=== PATIENT | male | born 1950 | race Caucasian/White ===

== ENCOUNTER 2018-05-03 06:37 | Observation (INO) | payer BC ==
[~2018-05-03] VITALS: Ht 182.9 cm; Wt 120.6 kg
--- NOTE | ~2018-05-03 | D ---
[facility] [place] [address] DISCHARGE SUMMARY Name: ARY LOPEZ Room #: REG [facility] [id number] Admission: 05/03/18 ������������������ Attend Phys: Chad Perales MD, Discharge: ������������������ Date of : 50 Report #: [id number] THIS REPORT FOR: //name// CC: Chad Scruggs [facility] [place] DISCHARGE DIAGNOSES: 1. Progressive, unstable angina. 2. Severe coronary artery disease with stenting of the proximal right coronary (4.0 x 15 mm Tabatha medicated stent). 3. Hypertension. 4. Diabetes. 5. Dyslipidemia. 6. Carotid stenosis. 7. Left bundle branch block. HISTORY OF PRESENT ILLNESS: For the complete details of the history of present illness, see dictated history and physical. Briefly, the patient is a 67-year-old gentleman with longstanding diabetes, hypertension and recent progressive chest discomfort. He is admitted for coronary angiography. HOSPITAL COURSE: The patient was admitted and underwent coronary angiography. The details of this can be found under separate heading and dictation. In summary, a very high-grade proximal LAD disease was identified, which was treated with a 4.0 x 15 mm Tabatha medicated stent postdilated to 4.4 mm with a noncompliant balloon. His post-procedural course was uneventful. He was treated with heparin, Integrilin, aspirin and prasugrel in the periprocedural setting. He was ambulating with excellent groin hemostasis at the time of discharge. DISCHARGE DIET: Low-fat, low-cholesterol, prudent diabetic type, carb-controlled. DISCHARGE MEDICATIONS: Aspirin 81 mg daily, Invokana 300 mg daily, Levemir 20 units at night, irbesartan 300 mg daily, metformin 1000 mg twice daily, Singulair 10 mg daily, pravastatin 80 mg daily, Zantac 300 mg daily, thiamine and multivitamin. Medicines were reconciled. DISCHARGE ACTIVITY: As instructed post catheterization. DISCHARGE FOLLOWUP: With Dr. Manrique as previously arranged. Follow up with myself in 1 month. Arrangements were made for outpatient cardiac rehabilitation. [address] [address] DISCHARGE SUMMARY Name: TAYLER LOPEZDERICK STEPHEN Room #: REG [facility].#: [id number] Admission: 05/03/18 ������������������ Attend Phys: Chad Perales MD, Discharge: ������������������ Date of : 50 Report #: [id number] DISCHARGE CONDITION: Stable and improved. ��������������������������������������������� ���������������������������������������� By: ��������������������������������������������� 0929 1333 Chad Perales MD, FACC /nt
[~2018-05-03 06:37] MED LIST: ALLEGRA180 MG PO; AVAPRO75 MG PO; DOXYCYCLINE 10100 MG PO; DYRENIUM100 MG PO; FISH OIL 1,0001 EAC5 PO; GLUCOPHAGE; NATURAL VITA100 UNIT PO; PLAVIX 75 MG TA75 MG PO; SIMVASTATIN20 MG PO; VITAMIN C W/R1000 MG PO
[2018-05-03] MEDS ORDERED: ZANTAC 150MG T150 MG PO (06:54)
[2018-05-03] MEDS ORDERED: INVOKANA300 MG PO (06:54)
[2018-05-03] MEDS ORDERED: ZYRTEC10 M5 PO (06:54)
[2018-05-03] MEDS ORDERED: VITAMIN B-1100 M1 PO (06:55)
[2018-05-03] MEDS ORDERED: VITAMIN B-12500 MCG PO (06:55)
[2018-05-03] MEDS ORDERED: FISH OIL 1,001000 M2 PO (06:56)
[2018-05-03] MEDS ORDERED: VITAMIN D3400 UNIT PO (06:57)
[2018-05-03] MEDS ORDERED: METFORMIN HCL500 MG PO (06:58)
[2018-05-03] MEDS ORDERED: ASPIR 8181 MG PO (07:00)
[2018-05-03] MEDS ORDERED: AVAPRO300 MG PO (07:00)
[2018-05-03] MEDS ORDERED: FLONASE 0.05%50 MCG INH (07:00)
[2018-05-03] MEDS ORDERED: PRAVACHOL40 MG PO (07:01)
[2018-05-03] MEDS ORDERED: SINGULAIR 10 MG10 M1 PO (07:02)
[2018-05-03 07:10] VITALS: BP 145/61
[2018-05-03] MEDS ORDERED: EFFIENT10 MG PO (09:21)
[2018-05-03] MEDS ORDERED: LEVEMIR SUBQ (09:22)
--- NOTE | 2018-05-03 09:47 | CATHLAB ---
[facility] [place] [address] INVASIVE PROCEDURE REPORT Name: JESSICAARYTERESA MITCHELL Room #: REG CL [facility] [id number] ������������� Admission: 05/03/18 ������������� Attend Phys: Chad Perales, Discharge: ��� ������������� ��� Date of : 50 Date of Service: 05/03/18 0947 �� Report #: [id number] �������� ��������������������������������������������[id number] THIS REPORT FOR: //name// APPROVED REPORT Study performed: 05/03/2018 07:18:47 Patient Details Patient Status: Out-Patient Room #: The patient is a 67 year-old male Event Personnel Chad Perales Knife Changer, Yordan Murillo RN, Elizabet Parada Sandifer, David Monitor Procedures Performed Left Heart Cath w/or w/o Coronaries [id number] [facility] Place w/wo Plasty Single RCA [id number] Indication Chest pain Procedure Narrative The Right Groin^ was infiltrated with 1% Lidocaine subcutaneous anesthesia. A PINNACLE 6FR Sheath #[id number] sheath was inserted into the RFA^. Coronary angiography was performed using coronary diagnostic catheters. The right coronary system was accessed and visualized with a JR4 catheter. The left coronary system was accessed and visualized with a JL4 catheter. The left ventricle was accessed and visualized with a PIGTAIL catheter. Left ventricular/Aortic Valve gradient assessed via catheter pullback. Left ventriculogram was performed in 30 degree projection. Closure device was deployed with a 6 Fr MYNXGRIP 6/7F #[id number]. There was no hematoma. Intraoperative Conscious Sedation Sedation start time: 8.12 Case end Time: 9.06 Fentanyl 75 mcg Versed 2 mg Fluoro Time: 8.38 minutes Dose: DAP 27283 cGycm2 1539 mGy Contrast Type and Amount: Omnipaque 240 ml Coronary Angiography The patient's coronary anatomy is right dominant. [facility] [place] [address] INVASIVE PROCEDURE REPORT Name: ARY LOPEZ [place] Room #: REG [facility] [id number] ������������� Admission: 05/03/18 ������������� Attend Phys: Chad Perales, Discharge: ��� ������������� ��� Date of : 50 Date of Service: 05/03/18 0947 �� Report #: [id number] �������� ��������������������������������������������[id number] Diagnostic Cath Left Main Normal left main LAD 30% proximal LAD stenosis 30-40% mid LAD stenosis Diagonal 1 40-50% proximal diagonal branch stenosis Diagonal 2 Moderate in size, angiographically normal Circumflex The circumflex was moderate in size and angiographically nondominant. Comprised of a single bifurcating marginal branch Proximal circumflex exhibited a 30-40% stenosis OM1 Moderate size, single marginal branch, angiographically normal Right Coronary Dominant right coronary with a 95-99% proximal right coronary stenosis R PDA Large, angiographically normal posterior descending RPLV Large, angiographically normal posterolateral branch Left Ventriculography The left ventricle is normal in size with normal contractility. The left ventricular ejection fraction is estimated to be 50%. Left ventricular wall motion abnormalities are not present. There is no mitral insufficiency. Discordant anterior wall motion consistent with an intraventricular conduction delay Hemodynamics The aortic pressure is 148/72 mmHg with a mean of 97 mmHg. The left ventricular pressure is 171/14 mmHg with a mean of mmHg. The left ventricular end diastolic pressure is 28 mmHg. There was no gradient across the aortic valve upon pullback. Pullback from the left ventricle to the aorta revealed no gradient across the aortic valve. PCI Technique Lesion Anticoagulation was achieved with Heparin, Integrilin. Patient was preloaded with Effient. Percutaneous coronary intervention was performed on the proximal right coronary artery. The lesion stenosis prior to intervention was 99% with DERRICK 3 flow. A LAUNCHER 6FR 3DRC #[id number] Guide Catheter was used to engage the ostium. A Luge Wire .014 x 182CM #[id number] Interventional Guidewire was used to cross the lesion. BALLOON DILATION A Balloon catheter Euphora RX 3.5 x 15 #[id number] was inserted and inflated up to 8.00atm for 26seconds. Repeat angiography revealed the [facility] [address] [place] [address] INVASIVE PROCEDURE REPORT Name: ARY LOPEZ STEPH[place] Room #: REG CL [facility]#: [id number] ������������� Admission: 05/03/18 ������������� Attend Phys: Chad Perales, Discharge: ��� ������������� ��� Date of : 50 Date of Service: 05/03/18 0947 �� Report #: [id number] �������� ��������������������������������������������[id number] following post-dilatation results: severe residual stenosis. STENT DEPLOYMENT A drug-eluting stent XIENCE ANABEL RX 4.0 X 15 #[id number] was inserted and inflated up to 20.00atm for 27seconds. Repeat angiography revealed the following post-stent deployment results: 0% residual stenosis. POST STENT DEPLOYMENT BALLOON DILATION A Balloon catheter TREK NC RX 4.5 X 12 #[id number] was inserted and inflated up to 16.00atm for 30seconds. Repeat angiography revealed the following post-dilatation results: 0% residual stenosis. Final angiography reveals 0 % stenosis with DERRICK 3 flow. COMMENTS 4.0 mm stent dilated to 4.45 mm with a noncompliant balloon Conclusion 1. Normal left ventricular systolic function with discordant septal motion 2. Normal left main 3. Moderate proximal and mid LAD disease 4. Mild to moderate plaquing in a nondominant circumflex 5. Critical proximal right coronary stenosis successfully ballooned and stented with a 4.0 x 15 mm Anabel medicated stent, post-dilated to 4.45mm Recommendations Cardiac Rehabilitation Referral Aggressive Medical Therapy Medications Administered ALLEY Inhibitor (any) Aspirin (any) Statin (any) Prasugrel Cardiac Rehabilitation Referral ��������������������������������������������� <ELECTRONICALLY SIGNED> ���������������������������������������� By: Chad Perales MD, FACC ��������������������������������������������� 05/03/18946 6 6 Chad Perales MD, FACC /INF
--- NOTE | 2018-05-03 12:18 | EKG ---
[address] [place] [address] ELECTROCARDIOGRAM REPORT Name: LOPEZARY JOSEPH Room #: REG CLI [facility]#: [id number] ������������������ Admission: 05/03/18 ������������������ Attend Phys: Chad Perales MD, Discharge: ������������������ Date of : 50 Report #: [id number] ����������������������������������������������������������������� [id number] THIS REPORT FOR: //name// [facility] Test Date: 2018-05-03 Test Time: 11:25:22 Pat Name: ARY LOPEZ Department: Room: Gender: M Assistant To The President: : 1950 Requested By: Chad Perales Order Number: [id number] MD: Bro Nick Measurements Intervals [place] Rate: 67 P: 43 MD: 163 QRS: -41 QRSD: 157 T: 111 QT: 432 QTc: 456 Interpretive Statements Sinus rhythm Left bundle branch block Compared to ECG 01/11/2009 10:46:37 Left bundle-branch block now present Sinus bradycardia no longer present Electronically Signed On 05-03-2018 12:18:08 CUSTOMS COMPLIANCE DIRECTOR by Bro Nick [email or web address] ��������������������������������������������� <ELECTRONICALLY SIGNED> ���������������������������������������� By: Bro Nick MD ��������������������������������������������� 05/03/18 1218 1125 1125 Bro Nick MD /EPI
[2018-05-03 16:00] VITALS: BP 149/74
--- NOTE | 2018-05-03 16:13 | NUR ---
1600-CALLED REPORT TO CHRISTOS LARIOS ON CCU AND TRANSFERRED PT OVER BY WHEELCHAIR. PT UP AD NARENDRA WITHOUT ANY COMPLAINTS. RIGHT GROIN SOFT WITH NO HEMATOMA PRESENT. QUARTER SIZE AMOUNT OF BLOOD ON DRESSING WITH NO CHANGE IN SIZE. SHOWED RIGHT GROIN DRESSING TO BOX FOLDING MACHINE OPERATOR ON ARRIVAL TO RM 209 AND INFORMED CHRISTOS LARIOS. FAMILY AT , VSS.
[2018-05-03 19:39] VITALS: BP 143/70
[2018-05-04 00:34] VITALS: BP 145/60
[2018-05-04 04:26] VITALS: BP 132/67
[2018-05-04 04:44] LABS: HEMATOCRIT 41.5 % (42.0-52.0); HEMOGLOBIN 14.1 gm/dL (14.0-18.0); MCH 29.1 pg (26.0-34.0); MCV 85.4 fL (80.0-100.0); RBC 4.86 mil/uL (4.50-6.00); RDW 14.6 % (10.5-14.5); WBC 7.6 thou/uL (4.0-11.0)
[2018-05-04 04:53] LABS: ALBUMIN 3.1 g/dL (3.4-5.0); CALCIUM 8.6 mg/dL (8.5-10.1); POTASSIUM 3.9 mmol/L (3.5-5.1); TOTAL BILIRUBIN 0.7 mg/dL (<0.1-1.0)
[2018-05-04 05:04] LABS: TROPONIN-I 0.7 ng/mL (<0.06)
--- NOTE | 2018-05-04 07:41 | NUR ---
ASSESSMENTS CHARTED. DRAINAGE ON BANDAGE ON RIGHT GROIN ACCESS SITE WAS UNCHANGED DURING SHIFT. DENIED PAIN. PLAN OF CARE TO RETURN HOME TODAY.
[2018-05-04 08:23] VITALS: BP 144/79
[2018-05-04 10:16] VITALS: BP 144/79
[2018-05-04 10:24] VITALS: BP 144/79
--- NOTE | 2018-05-04 10:55 | NUR ---
VSS-AFEBRILE. LUNGS CLEAR TO AUSCULTATION IN ALL BURGOS BILATERALLY, ROOM AIR. RIGHT GROIN SITE SOFT, SLIGHTLY BRUISED, NO NEW DRAINAGE. DISCUSSED DC INSTRUCTIONS, PATIENT AND SPOUSE VERBALIZED UNDERSTANDING. SCRIPT FOR EFFIENT GIVEN TO SPOUSE YESTERDAY, AND HAS ALREADY BEEN FILLED. [facility] TO CALL PATIENT SUNDAY TO SCHEDULE ORIENTATION. REMAINS IN SR-RATE IN 60'S THIS MORNING. NO REPORTS OF N/V.
--- NOTE | 2018-05-05 19:34 | EKG ---
[address] [address] ELECTROCARDIOGRAM REPORT Name: ARY LOPEZ STEPHEN Room #: 209-[facility]..#: [id number] ������������������ Admission: 05/03/18 ������������������ Attend Phys: Chad Perales MD, Discharge: 05/04/18 ������������������ Date of : 50 Report #: [id number] ����������������������������������������������������������������� [id number] THIS REPORT FOR: //name// [facility] Test Date: 2018-05-04 Test Time: 07:41:45 Pat Name: ARY LOPEZ Department: Room: 209 Gender: M Binding Printer: TREY : 1950 Requested By: Chad Perales Order Number: [id number] MD: Bro Nick Measurements Intervals [place] Rate: 65 P: 54 [place]: 189 QRS: -34 QRSD: 158 T: 108 QT: 460 QTc: 479 Interpretive Statements Sinus rhythm left atrial enlargement Left bundle branch block Compared to ECG 05/03/2018 11:25:22 No significant changes Electronically Signed On 05-05-2018 19:34:10 AFTER SCHOOL PROGRAM COORDINATOR by Bro Nick [email or web address] ��������������������������������������������� <ELECTRONICALLY SIGNED> ���������������������������������������� By: Bro Nick MD ��������������������������������������������� 05/05/18 1934 0741 0741 Bro Nick MD /EPI
== END 2018-05-04 11:41 | disposition home or self-care (01) ==
LOC: CATH 06:37 → 2N 16:15
PROVIDERS: ADMIT Internal Medicine
DX: I25.110 Atherosclerotic heart disease of native coronary artery with unstable angina pectoris (principal); I10 Essential (primary) hypertension; E11.9 Type 2 diabetes mellitus without complications; E78.5 Hyperlipidemia, unspecified; I65.29 Occlusion and stenosis of unspecified carotid artery; I44.7 Left bundle-branch block, unspecified; Z79.82 Long term (current) use of aspirin; Z79.84 Long term (current) use of oral hypoglycemic drugs; Z79.899 Other long term (current) drug therapy

== ENCOUNTER → 2019-11-27 | Outpatient (CLI) | payer BC ==
[~2019-11-27] MED LIST changes: +ASPIR 8181 MG PO; +AVAPRO300 MG PO; +EFFIENT10 MG PO; +FISH OIL 1,001000 M2 PO; +FLONASE 0.05%50 MCG INH; +INVOKANA300 MG PO; +LEVEMIR SUBQ; +METFORMIN HCL500 MG PO; +PRAVACHOL40 MG PO; +SINGULAIR 10 MG10 M1 PO; +VITAMIN B-1100 M1 PO; +VITAMIN B-12500 MCG PO; +VITAMIN D3400 UNIT PO; +ZANTAC 150MG T150 MG PO; +ZYRTEC10 M5 PO
== END ==
LOC: SJCVC 10:27
PROVIDERS: ATTEND Internal Medicine
DX: R94.31 Abnormal electrocardiogram [ECG] [EKG] (principal); I25.10 Atherosclerotic heart disease of native coronary artery without angina pectoris; I44.7 Left bundle-branch block, unspecified; E78.5 Hyperlipidemia, unspecified; I10 Essential (primary) hypertension; I65.23 Occlusion and stenosis of bilateral carotid arteries; E11.9 Type 2 diabetes mellitus without complications; Z79.4 Long term (current) use of insulin; Z79.899 Other long term (current) drug therapy

== ENCOUNTER → 2020-05-26 | Outpatient (CLI) | payer BC | LOC: SJCVCIMAG 07:48 | PROVIDERS: ATTEND Internal Medicine | DX: I35.8 Other nonrheumatic aortic valve disorders (principal); I65.23 Occlusion and stenosis of bilateral carotid arteries; I11.9 Hypertensive heart disease without heart failure; I44.7 Left bundle-branch block, unspecified; E78.5 Hyperlipidemia, unspecified; E11.9 Type 2 diabetes mellitus without complications; I25.10 Atherosclerotic heart disease of native coronary artery without angina pectoris ==

== ENCOUNTER → 2020-05-31 | Outpatient (CLI) | payer BC | LOC: SJCVCIMAG 10:18 | PROVIDERS: ATTEND Internal Medicine | DX: R00.0 Tachycardia, unspecified (principal); I44.7 Left bundle-branch block, unspecified; I25.10 Atherosclerotic heart disease of native coronary artery without angina pectoris; E11.9 Type 2 diabetes mellitus without complications; Z79.4 Long term (current) use of insulin; I10 Essential (primary) hypertension; Z79.82 Long term (current) use of aspirin; Z79.899 Other long term (current) drug therapy; Z88.0 Allergy status to penicillin; R06.00 Dyspnea, unspecified ==